=== PATIENT | male | born 1960 | race Caucasian/White ===

== ENCOUNTER 2021-08-13 12:34 | Inpatient (IN) | payer OTHER ==
[~2021-08-13] VITALS: Ht 172.7 cm; Wt 59.0 kg
[2021-08-13] MEDS ORDERED: MULT-594 GT (13:08)
[2021-08-13] MEDS ORDERED: FOLI1TAB94 PO (13:08)
[2021-08-13] MEDS ORDERED: SENN-261 PO (13:08)
[2021-08-13] MEDS ORDERED: FINA5TAB11 PO (13:08)
[2021-08-13] MEDS ORDERED: VITAMIN B-1 PO (13:08)
[2021-08-13] MEDS ORDERED: GABA600T12 PO (13:08)
[2021-08-13] MEDS ORDERED: ACET-2154 PO (13:08)
[2021-08-13] MEDS ORDERED: DOCU100C36 PO (13:08)
[2021-08-13] MEDS ORDERED: VALP250C3 PO (13:08)
[2021-08-13] MEDS ORDERED: BISA10SU61 RC (13:08)
[2021-08-13] MEDS ORDERED: MAGN400O6 PO (13:08)
--- NOTE | 2021-08-13 13:30 | NUR ---
Per pt to be admitted to m/s, [facility] paged, no m/s beds available at this time per m/s floor.
[2021-08-13 14:18] LABS: HEMATOCRIT 48.3 % (36.7-47.1); MEAN CORPUSCULAR VOLUME 97.5 fL (73.0-96.2); PLATELET COUNT (AUTO) 186 K/uL (152-348)
[2021-08-13 14:19] LABS: CREATININE 0.7 mg/dL (0.6-1.3); POTASSIUM 4.8 mmol/L (3.5-5.1)
[2021-08-13 14:25] LABS: BILIRUBIN,DIRECT 0.1 mg/dL (0.0-0.2); BILIRUBIN,TOTAL 0.8 mg/dL (0.2-1.0); TOTAL PROTEIN, SERUM 8.1 g/dL (6.4-8.2)
[2021-08-13] MEDS ORDERED: IV NS 1000 ML 1,000 ML IV ONE (15:00)
[2021-08-13] MEDS ORDERED: SWABABLE VALVE TRANSFER SET EA MC ONE (17:10)
[2021-08-13] MEDS ORDERED: IV NORMAL SALINE 250 ML IV ONE (17:10)
[2021-08-13] MEDS ORDERED: IOHEXOL 300MG/ML 100 ML INFUS..BTL ONE (17:10)
--- NOTE | 2021-08-13 17:20 | NUR ---
Per blood bank laboratory technician pt's saline lock got infiltrated during CT. Unable to establish another saline lock at this time, notified.
--- NOTE | 2021-08-13 18:00 | NUR ---
Midline ordered by , nursing quality assurance supervisor trim notified.
--- NOTE | 2021-08-13 18:45 | NUR ---
Pt trans to room 314, NAD noted. Pt to have CT chest/abd/pelvis with IV contrast after midline placement, reported to GIOVANNA Lugo accordingly.
[2021-08-13 20:00] VITALS: BP 99/71
[2021-08-13] MEDS ORDERED: BISACODYL 10 MG SUPP.RECT RC PRN (20:45)
[2021-08-13] MEDS ORDERED: ACETAMINOPHEN 325 MG TABLET PO PRN (20:45)
[2021-08-13] MEDS ORDERED: LORAZEPAM 2 MG/1 ML VIAL IV PRN (20:45)
[2021-08-13] MEDS ORDERED: MAGNESIUM HYDROXIDE 30 ML LIQUID UDC PO PRN (20:45)
[2021-08-13] MEDS: SENNOSIDES 1 TABLET PO SCH (21:00)
[2021-08-14 04:00] VITALS: BP 113/69
[2021-08-14] MEDS ORDERED: PANTOPRAZOLE SODIUM 40 MG TABLET.DR PO SCH (07:00)
--- NOTE | 2021-08-14 07:14 | NUR ---
Admitted from [facility] for G Tube Malfunction. He was received in bed, alert and oriented to name only. He was to have an abdominal CT, but was waiting for a midline to be placed. This was placed around midnight, to the CURLY, 18 gauge. Radiology was busy, so they agreed to do the CT at around 8 AM, this morning. He was given pudding and applesauce, but PO medications were held, pending a swallow eval, this morning. HE has been NPO, since 1 AM. Currently awake. Remains calm and cooperative.
[2021-08-14] MEDS ORDERED: DOCUSATE SODIUM 100 MG CAPSULE PO SCH (09:00)
[2021-08-14] MEDS ORDERED: Medication Not On Formulary EA (Multivitamins (Multivitamin) 1 TAB) GT SCH (09:00)
[2021-08-14] MEDS ORDERED: VALPROIC ACID 250 MG CAPSULE PO SCH (09:00)
[2021-08-14 09:43] LABS: HEMATOCRIT 45.9 % (36.7-47.1); MEAN CORPUSCULAR HEMOGLOBIN 33.2 uug (23.8-33.4); MEAN CORPUSCULAR VOLUME 96.6 fL (73.0-96.2); PLATELET COUNT (AUTO) 293 K/uL (152-348)
[2021-08-14] MEDS: GABAPENTIN 300 MG CAPSULE PO SCH ×3 (09:43→16:35)
[2021-08-14] MEDS: FINASTERIDE 5 MG TABLET PO SCH (09:43)
[2021-08-14] MEDS: MULTIVITAMINS,THERAPEUTIC TABLET PO SCH (09:43)
[2021-08-14 10:55] LABS: ALANINE AMINOTRANSFERASE 38 U/L (16-63); ALKALINE PHOSPHATASE 62 U/L (50-136); ASPARTATE AMINOTRANSFERASE 18 U/L (15-37); BILIRUBIN,TOTAL 0.8 mg/dL (0.2-1.0); CARBON DIOXIDE 24 mmol/L (21-32); CHLORIDE 105 mmol/L (98-107); CHOLESTEROL 154 mg/dL (<200); CREATININE 0.7 mg/dL (0.6-1.3); GLUCOSE 88 mg/dL (74-106); HDL CHOLESTEROL 39 mg/dL (40-60); MAGNESIUM 2.2 mg/dL (1.8-2.4); PHOSPHOROUS 3.9 mg/dL (2.5-4.9); TOTAL PROTEIN, SERUM 7.7 g/dL (6.4-8.2); TRIGLYCERIDES 67 MG/DL (30-150); UREA NITROGEN, BLOOD 17 mg/dL (7-18)
[2021-08-14 12:00] VITALS: BP 110/62
[2021-08-14] MEDS: VALPROIC ACID 250 MG/5 ML LIQUID UDC PO SCH ×2 (12:26→16:34)
[2021-08-14 14:29] LABS: VALPROIC ACID < 3 ug/mL (50-100)
[2021-08-14] MEDS: DOCUSATE SODIUM 100 MG/10 ML LIQUID UDC PO SCH (16:34)
[2021-08-14 16:46] VITALS: BP 106/64
[2021-08-14 17:56] LABS: THYROID STIMULATING HORMONE 2.899 mIU/mL (0.358-3.740)
--- NOTE | 2021-08-14 18:18 | NUR ---
patient is alert to self, forgetful, no sob, resp even nonlabored,skin warm and dry to touch, g-tube intact, noted redness at g-tube site, dr freitas is aware, waiting for wound consult for further instructions, no discharge noted at g-tube site, also noted with open sore to left mid abdomen, tx initiated, continue to monitor, patient refuses to eat, convinced to eat, patient only drank water and juice.
[2021-08-14 20:00] VITALS: BP 107/75
[2021-08-14] MEDS: SENNOSIDES 1 TABLET PO SCH (21:48)
[2021-08-15 05:38] VITALS: BP 102/67
--- NOTE | 2021-08-15 06:08 | NUR ---
Pt slept throughout the night. Pt encouraged to eat, but refuses. Only will drink water. Tolerates drinking well with no coughing noted. IV site intact. Safety and comfort provided. Will endorse to day shift.
[2021-08-15] MEDS: PANTOPRAZOLE ORAL SUSPENSION 40 MG SUSPDR.PKT PO SCH (06:29)
[2021-08-15] MEDS: MULTIVITAMINS,THERAPEUTIC TABLET PO SCH (08:06)
[2021-08-15] MEDS: FINASTERIDE 5 MG TABLET PO SCH (08:06)
[2021-08-15] MEDS: DOCUSATE SODIUM 100 MG/10 ML LIQUID UDC PO SCH ×2 (08:06→16:12)
[2021-08-15] MEDS: VALPROIC ACID 250 MG/5 ML LIQUID UDC PO SCH ×3 (08:06→16:12)
[2021-08-15] MEDS: GABAPENTIN 300 MG CAPSULE PO SCH ×3 (08:06→16:12)
[2021-08-15] MEDS ORDERED: DIATR MEGLU/DIATRIZOATE SODIUM 30 ML BOTTLE ONE (11:45)
[2021-08-15 12:00] VITALS: BP 110/62
--- NOTE | 2021-08-15 15:28 | NUR ---
received call from radiology recommending for a repeat KUB to ensure that contrast has passed through the small bowel, relayed to MD. new order for KUB in 2 hours.
[2021-08-15 16:17] VITALS: BP 113/71
--- NOTE | 2021-08-15 19:30 | NUR ---
Received patient with HOB up. AAO to person, place and situation with some forgetfulness on time. Denies any pain at this time. On RA, no SOB noted. GT is intact and patent, placement checked by auscultation. He has 10 ml of residual. Midline to right upper arm is intact and patent. Offered PO intake but refused at this time. Safety measures initiated. Call light with in reach.
[2021-08-15] MEDS: SENNOSIDES 1 TABLET PO SCH (20:36)
[2021-08-15 20:46] VITALS: BP 99/60
[2021-08-16 04:30] VITALS: BP 93/62
[2021-08-16] MEDS: PANTOPRAZOLE ORAL SUSPENSION 40 MG SUSPDR.PKT PO SCH (06:19)
--- NOTE | 2021-08-16 06:50 | NUR ---
Patient slept intermittently. Denies any pain at this time. On RA, no SOB noted. GT is intact and patent, placement assessed by auscultation. Midline to right upper arm is intact and patent. No significant events this shift. Safety measures continued. Call light with in reach.
[2021-08-16 07:49] VITALS: BP 111/82
[2021-08-16] MEDS: DOCUSATE SODIUM 100 MG/10 ML LIQUID UDC PO SCH ×2 (08:37→18:28)
[2021-08-16] MEDS: GABAPENTIN 300 MG CAPSULE PO SCH ×3 (08:38→18:28)
[2021-08-16] MEDS: FINASTERIDE 5 MG TABLET PO SCH (08:38)
[2021-08-16] MEDS: VALPROIC ACID 250 MG/5 ML LIQUID UDC PO SCH ×3 (08:38→18:28)
[2021-08-16] MEDS: MULTIVITAMINS,THERAPEUTIC TABLET PO SCH (08:38)
[2021-08-16] MEDS ORDERED: FAMO-132 PO (14:04)
[2021-08-16] MEDS ORDERED: CYANOCOBALAMIN 1000 MCG/ML VIAL IM SCH (14:15)
[2021-08-16] MEDS ORDERED: CYAN10006 IM (14:32)
--- NOTE | 2021-08-16 18:45 | NUR ---
Pt discharged to [facility] assisted living via ambulance. AO x 2. On room air saturating at 99%. Nonverbal but is able to nod for needs. VS 112/72, temp 98.2, HR 91. Pt compliant with medication and care. Large formed bowel movement made. No acute distress. Discharge packet completed.
== END 2021-08-16 18:45 | DRG 252 ==
LOC: ER 12:34 → MEDSURG3 18:55
PROVIDERS: ADMIT Internal Medicine; ATTEND Internal Medicine
PROC: 05H933Z Insertion of Infusion Device into Right Brachial Vein, Percutaneous Approach (ICD-10-PCS; principal; 2021-08-13)
DX: K94.23 Gastrostomy malfunction (principal); G93.49 Other encephalopathy; K76.89 Other specified diseases of liver; F03.90 Unspecified dementia, unspecified severity, without behavioral disturbance, psychotic disturbance, mood disturbance, and anxiety; L03.311 Cellulitis of abdominal wall; F25.9 Schizoaffective disorder, unspecified; E53.8 Deficiency of other specified B group vitamins; R91.8 Other nonspecific abnormal finding of lung field; K80.20 Calculus of gallbladder without cholecystitis without obstruction; E78.5 Hyperlipidemia, unspecified; K56.41 Fecal impaction; M51.36 Other intervertebral disc degeneration, lumbar region; N40.0 Benign prostatic hyperplasia without lower urinary tract symptoms; Z85.47 Personal history of malignant neoplasm of testis; G62.9 Polyneuropathy, unspecified; R13.10 Dysphagia, unspecified; D75.89 Other specified diseases of blood and blood-forming organs; K94.22 Gastrostomy infection; Y83.8 Other surgical procedures as the cause of abnormal reaction of the patient, or of later complication, without mention of misadventure at the time of the procedure; Z86.16 Personal history of COVID-19; Z87.891 Personal history of nicotine dependence; Y92.128 Other place in nursing home as the place of occurrence of the external cause; K59.00 Constipation, unspecified; Z20.822 Contact with and (suspected) exposure to COVID-19
CPT/HCPCS: 36415; 70030-TC; 71045; 71260; 74018; 80164; 83690; 83735; 84100; 84443; 85025; 85730; 93005; 97161; A4663; G0378; J7030; J7050; Q9963; Q9967